=== PATIENT | male | born 1990 | race Caucasian/White ===

== ENCOUNTER 2016-07-08 03:42 | Emergency (ER) | payer MEDICAID ==
[~2016-07-08] VITALS: Ht 172.7 cm; Wt 76.6 kg
[2016-07-08 03:43] VITALS: BP 147/70
== END 2016-07-08 04:18 | disposition left against medical advice (07) ==
LOC: ED 04:07
DX: F10.99 Alcohol use, unspecified with unspecified alcohol-induced disorder (principal); F15.10 Other stimulant abuse, uncomplicated; Y90.9 Presence of alcohol in blood, level not specified; Z53.21 Procedure and treatment not carried out due to patient leaving prior to being seen by health care provider

== ENCOUNTER 2016-09-16 00:35 | Emergency (ER) | payer SELFPAY ==
[~2016-09-16] VITALS: Ht 175.3 cm; Wt 85.7 kg
[2016-09-16 00:36] VITALS: BP 163/95
== END 2016-09-16 01:52 | disposition home or self-care (01) ==
LOC: ED 01:22
DX: F10.129 Alcohol abuse with intoxication, unspecified (principal); Y90.9 Presence of alcohol in blood, level not specified
CPT/HCPCS: 99281

== ENCOUNTER 2016-12-14 06:02 | Emergency (ER) | payer BC, OTHER ==
[~2016-12-14] VITALS: Ht 175.3 cm; Wt 80.0 kg
[2016-12-14 06:04] VITALS: BP 145/78
[2016-12-14] MEDS ORDERED: ONDANSETRON 2MG/ML, 2ML IVPush ONE (07:30)
[2016-12-14] MEDS ORDERED: SODIUM CHLORIDE 0.9% 1,000ML IVBOLUS ONE (07:30)
[2016-12-14] MEDS ORDERED: THIAMINE 100MG TABLET PO ONE (07:30)
== END 2016-12-14 09:17 | disposition home or self-care (01) ==
LOC: ED 06:36
DX: K52.9 Noninfective gastroenteritis and colitis, unspecified (principal)
CPT/HCPCS: 96360; 99284; J7030

== ENCOUNTER 2016-12-25 07:39 | Emergency (ER) | payer OTHER ==
[~2016-12-25] VITALS: Ht 175.3 cm; Wt 77.0 kg
[2016-12-25] MEDS ORDERED: BACITRACIN ZINC OINT 500U/GM, 0.9 GM ONE (07:50)
[2016-12-25 10:09] VITALS: BP 138/68
== END 2016-12-25 11:36 | disposition home or self-care (01) ==
LOC: ED 07:56
DX: F15.129 Other stimulant abuse with intoxication, unspecified (principal)
CPT/HCPCS: 99283

== ENCOUNTER 2016-12-25 20:45 | Emergency (ER) | payer OTHER ==
[~2016-12-25] VITALS: Ht 172.7 cm; Wt 75.0 kg
[2016-12-26 00:14] VITALS: BP 108/70
== END 2016-12-26 01:05 | disposition home or self-care (01) ==
LOC: ED 23:50
DX: S02.2XXA Fracture of nasal bones, initial encounter for closed fracture (principal); G89.11 Acute pain due to trauma; Y04.0XXA Assault by unarmed brawl or fight, initial encounter
CPT/HCPCS: 12011; 70450; 70486; 72125

== ENCOUNTER 2019-06-02 13:52 | Emergency (ER) | payer SELFPAY ==
[~2019-06-02] VITALS: Ht 175.3 cm; Wt 88.6 kg
[2019-06-02] MEDS ORDERED: ACETAMINOPHEN 500 MG TABLET ONE (13:58)
[2019-06-02] MEDS ORDERED: ACETAMINOPHEN 500 MG TABLET PO ONE (14:00)
[2019-06-02] MEDS ORDERED: SODIUM CHLORIDE 0.9% 1,000ML IVBOLUS ONE (14:00)
--- NOTE | 2019-06-02 14:36 | NUR ---
NO ANSWER WHEN CALLED FOR A ROOM AT THIS TIME.
[2019-06-02 14:50] LABS: RAPID INFLUENZA A POSITIVE (Negative); RAPID INFLUENZA B Negative (Negative)
--- NOTE | 2019-06-02 15:10 | NUR ---
ER PA WAS IN TO SEE PT. IV BOLUS INFUSING. PT UNDERSTANDS POC.
[2019-06-02 15:12] LABS: BASOPHILS % (AUTO) 0 % (0-1); EOSINOPHILS % (AUTO) 0 % (1-7); LYMPHOCYTES # (AUTO) 0.37 x10^3/uL (1-3.4); LYMPHOCYTES % (AUTO) 8 % (22-44); MD NO; MEAN CORPUSCULAR HEMOGLOBIN 31.2 pg (27.5-34.5); MEAN CORPUSCULAR HGB CONC 33.9 g/dL (33.2-36.2); MEAN CORPUSCULAR VOLUME 91.9 fL (81-97); MEAN PLATELET VOLUME 7.5 fL (7.4-10.4); MONOCYTES # (AUTO) 0.36 x10^3/uL (0.2-0.8); MONOCYTES % (AUTO) 7 % (2-9); NEUTROPHILS # (AUTO) 4.26 x10^3/uL (1.8-6.8); NEUTROPHILS % (AUTO) 85 % (42-75); PLATELET COUNT 208 x10^3/uL (130-400); RED BLOOD COUNT 4.43 x10^6/uL (4.38-5.82); RED CELL DISTRIBUTION WIDTH 12.6 % (9.4-14.8)
[2019-06-02 15:13] LABS: MICROSCOPIC INDICATED
[2019-06-02 15:15] VITALS: BP 146/75
[2019-06-02] MEDS ORDERED: KETOROLAC 30 MG/1 ML ONE (15:17)
[2019-06-02 15:25] LABS: ALBUMIN 3.8 g/dL (3.4-5.0); ANION GAP 10 mmol/L (5-15); CALCIUM 8.3 mg/dL (8.5-10.1); CHLORIDE 104 mmol/L (98-107)
[2019-06-02 15:26] LABS: CULTURE INDICATED? NO
[2019-06-02 15:29] LABS: ALANINE AMINOTRANSFERASE 69 U/L (12-78); ALKALINE PHOSPHATASE 77 U/L (45-117); BILIRUBIN,TOTAL 0.4 mg/dL (0.2-1.0); CREATININE 1.26 mg/dL (0.7-1.3); TOTAL PROTEIN 6.8 g/dL (6.4-8.2)
[2019-06-02] MEDS ORDERED: KETOROLAC 30 MG/1 ML IVPush ONE (15:30)
== END 2019-06-02 16:27 | disposition home or self-care (01) ==
LOC: ED 16:21
DX: J10.1 Influenza due to other identified influenza virus with other respiratory manifestations (principal); R00.0 Tachycardia, unspecified; Z72.9 Problem related to lifestyle, unspecified
CPT/HCPCS: 36415; 71046; 80053; 81001; 83605; 84145; 85025; 87040; 87081; 87147; 87400; 87880; 93005; 96374; 99285; J1885; J7030

== ENCOUNTER 2019-06-06 09:20 | Emergency (ER) | payer SELFPAY ==
[~2019-06-06] VITALS: Ht 175.3 cm; Wt 86.6 kg
[2019-06-06 09:28] VITALS: BP 130/85
== END 2019-06-06 11:21 | disposition home or self-care (01) ==
LOC: ED 11:07
DX: S61.240A Puncture wound with foreign body of right index finger without damage to nail, initial encounter (principal); R05 Cough; J02.9 Acute pharyngitis, unspecified; F17.200 Nicotine dependence, unspecified, uncomplicated; Z76.0 Encounter for issue of repeat prescription; X58.XXXA Exposure to other specified factors, initial encounter; Y93.89 Activity, other specified; Y92.098 Other place in other non-institutional residence as the place of occurrence of the external cause; Y99.8 Other external cause status
CPT/HCPCS: 99284

== ENCOUNTER 2019-06-11 10:26 | Emergency (ER) | payer MEDICAID ==
[~2019-06-11] VITALS: Ht 172.7 cm; Wt 83.6 kg
--- NOTE | 2019-06-11 10:46 | NUR ---
PT AMBULATED TO [facility]. PT WAS SEEN EARLIER THIS MONTH FOR C/O FLU. STATES "SOMEONE CALLED ME AND TOLD ME I HAD THE FLU, BUT DIDN'T ORDER ME ANY MEDICATIONS. NOW IT HURTS TO BREATH, AND COUGH" LUNGS ALL LOBES HAVE FINE INSP AND EXP WHEEZING. ASSESSED BY HERBERT DOTSON, ORDER FOR BREATHING TREATMENT. PT ASSESSED, GIVEN CALL LIGHT AND BLANKET.
[2019-06-11] MEDS ORDERED: ALBUTEROL/IPRATROPIUM 2.5MG/0.5MG, 3 ML NPPB ONE (11:00)
[2019-06-11] MEDS ORDERED: ALBUTEROL/IPRATROPIUM 2.5MG/0.5MG, 3 ML ONE (11:07)
--- NOTE | 2019-06-11 11:27 | NUR ---
DISCHARGE INSTRUCTIONS GIVEN TO PATIENT. PT VERBALIZES UNDERSTANDING OF ALL INSTSRUCTIONS AND FOLLOW UP. PRESCRIPTION GIVEN FOR RAZIA MAXWELL, PT INFORMED OF USE OF MEDICATIONS AND SIDE EFFECTS. PT HAS NO QUESTIONS REGARDING MEDICATIONS. PT AMBULATED OUT TO DISCHARGE DESK WITH STRONG STEADY GAIT.
[2019-06-11 11:29] VITALS: BP 122/77
== END 2019-06-11 11:31 | disposition home or self-care (01) ==
LOC: ED 11:26
DX: J11.1 Influenza due to unidentified influenza virus with other respiratory manifestations (principal)
CPT/HCPCS: 71046; 94640; 99283; J7620

== ENCOUNTER 2019-06-28 03:46 | Emergency (ER) | payer MEDICAID ==
[~2019-06-28] VITALS: Ht 172.7 cm; Wt 80.6 kg
[2019-06-28 03:48] VITALS: BP 165/95
--- NOTE | 2019-06-28 04:02 | NUR ---
"I HAVE RIGHT SIDED RIB PAIN WITH DEEP BREATHS" X 2.5 WEEKS, ALSO C/O PRODUCTIVE COUGH. WAS HERE 2 WEEKS AGO AND D/X WITH FLU, PRESCRIBED INHALER , TESSALON PEARLS AND NOT GETTING ANY BETTER. per triage note pt walked in followed by staff provided gown pt is in [facility] pt is waiting for erp for er eval
[2019-06-28] MEDS ORDERED: KETOROLAC 60 MG/2 ML ONE (04:13)
[2019-06-28] MEDS ORDERED: KETOROLAC 30 MG/1 ML ONE (04:17)
--- NOTE | 2019-06-28 04:24 | NUR ---
medicated by toradol imaging chest xray was done waiting for ekg now
[2019-06-28] MEDS ORDERED: KETOROLAC 30 MG/1 ML IM ONE (04:30)
--- NOTE | 2019-06-28 06:16 | NUR ---
given dc instruction pt understood pt up ambulated to check out pt stated pt feels better now
== END 2019-06-28 06:18 | disposition home or self-care (01) ==
LOC: ED 05:34
DX: R07.89 Other chest pain (principal); F15.129 Other stimulant abuse with intoxication, unspecified; Z72.9 Problem related to lifestyle, unspecified; F17.200 Nicotine dependence, unspecified, uncomplicated
CPT/HCPCS: 71045; 93005; 96372; 99283; J1885

== ENCOUNTER 2019-06-28 11:21 | Emergency (ER) | payer MEDICAID ==
[~2019-06-28] VITALS: Ht 175.3 cm; Wt 91.0 kg
[2019-06-28] MEDS ORDERED: NALOXONE 0.4 MG/ML, 1ML ONE (11:32)
--- NOTE | 2019-06-28 11:51 | NUR ---
RECEIVED REPORT FROM KATYA VILLALPANDO, ASSUMING CARE AT THIS TIME
--- NOTE | 2019-06-28 11:52 | NUR ---
CT ON HOLD FOR CODE NEURO PATIENT
--- NOTE | 2019-06-28 11:54 | NUR ---
no change in s/s post narcan. aware
[2019-06-28 11:56] LABS: BASOPHILS # (AUTO) 0.03 x10^3/uL (0-0.1); BASOPHILS % (AUTO) 0 % (0-1); EOSINOPHILS % (AUTO) 1 % (1-7); LYMPHOCYTES # (AUTO) 2.48 x10^3/uL (1-3.4); LYMPHOCYTES % (AUTO) 29 % (22-44); MD NO; MEAN PLATELET VOLUME 7.3 fL (7.4-10.4); MONOCYTES # (AUTO) 0.87 x10^3/uL (0.2-0.8); MONOCYTES % (AUTO) 10 % (2-9); NEUTROPHILS # (AUTO) 5.21 x10^3/uL (1.8-6.8); NEUTROPHILS % (AUTO) 60 % (42-75); PLATELET COUNT 325 x10^3/uL (130-400); RED BLOOD COUNT 4.85 x10^6/uL (4.38-5.82); RED CELL DISTRIBUTION WIDTH 13.6 % (9.4-14.8)
[2019-06-28] MEDS ORDERED: NALOXONE 0.4 MG/ML, 1ML IVPush PRN (12:00)
[2019-06-28 12:07] LABS: ALANINE AMINOTRANSFERASE 35 U/L (12-78); ALBUMIN 3.2 g/dL (3.4-5.0); ANION GAP 8 mmol/L (5-15); CALCIUM 8.4 mg/dL (8.5-10.1); CHLORIDE 106 mmol/L (98-107); CREATININE 0.78 mg/dL (0.7-1.3)
[2019-06-28 12:08] LABS: SALICYLATE LEVEL < 1.7 mg/dL (2.8-20.0)
[2019-06-28 12:17] LABS: ALKALINE PHOSPHATASE 89 U/L (45-117); BILIRUBIN,TOTAL 0.4 mg/dL (0.2-1.0); TOTAL PROTEIN 7.5 g/dL (6.4-8.2)
--- NOTE | 2019-06-28 12:19 | NUR ---
PT CONTINUES TO BE UNRESPONSIVE TO VERBAL STIMILI, SOME RETRACTION FROM PAIN. PUPILS PINPOINT WITH RIGHT EYE DEVEATED TO THE SIDE. VSS AT THIS TIME. NADN. AWAITING TEST RESULTS AT THIS TIME
--- NOTE | 2019-06-28 12:42 | NUR ---
Vitaliy aguayo in [facility] - 06/28/19 at 1243 by [facility] ATTEMPTING US LESLIE MD UPDATED ON DELAYS
--- NOTE | 2019-06-28 12:45 | NUR ---
TECH AT BEDSIDE FOR EKG
--- NOTE | 2019-06-28 13:00 | NUR ---
PT TAKEN TO CT
--- NOTE | 2019-06-28 13:08 | NUR ---
BACK FROM CT AT THIS TIME
--- NOTE | 2019-06-28 13:15 | NUR ---
WENT TO ATTEMPT STRAIGHT CATH UA, PT STARTING TO BECOME MORE RESPONSIVE. SAYING "WHAT" AFTER STERNAL RUB. GAURDING GENITAL AREA WHEN ASKING FOR UA. MD TO BE UPDATED
--- NOTE | 2019-06-28 14:06 | NUR ---
STILL AWAITING RECHECK BY AT THIS TIME. PT SLEEPING IN BED, SKYLAR. VSS. WILL CONTINUE TO MONITOR
[2019-06-28 16:08] VITALS: BP 108/58
--- NOTE | 2019-06-28 16:08 | NUR ---
pt awaiting and talking at this time, answering questions. pt sts he took a xanax, and martha then must have fallen asleep. updated. Will attempts to walk pt in halls
--- NOTE | 2019-06-28 16:40 | NUR ---
SUCCESSFUL AMB IN MD [facility] UPDATED. DC PAPERS RECEIVED
== END 2019-06-28 17:06 | disposition home or self-care (01) ==
LOC: ED 16:40
DX: F13.10 Sedative, hypnotic or anxiolytic abuse, uncomplicated (principal); T42.4X1A Poisoning by benzodiazepines, accidental (unintentional), initial encounter; T42.8X1A Poisoning by antiparkinsonism drugs and other central muscle-tone depressants, accidental (unintentional), initial encounter; R94.31 Abnormal electrocardiogram [ECG] [EKG]; R41.82 Altered mental status, unspecified; Y92.89 Other specified places as the place of occurrence of the external cause
CPT/HCPCS: 36415; 70450; 80053; 80307; 82140; 85025; 93005; 96374; 99285; J2310

== ENCOUNTER 2019-07-09 05:31 | Emergency (ER) | payer MEDICAID ==
[~2019-07-09] VITALS: Ht 172.7 cm; Wt 72.0 kg
[2019-07-09 05:33] VITALS: BP 129/82
--- NOTE | 2019-07-09 05:33 | NUR ---
PT ARRIVED W [facility] AFTER BEING REMOVED FROM 10/29 BY [facility]. PT AMBULATORY UPON ARRIVAL, NAD NOTED. A&OX4. SPEECH CLEAR.
--- NOTE | 2019-07-09 05:39 | NUR ---
PT NOTED TO AMBULATE STEADILY OUT OF DEPARTMENT. PT DRESSED APPROPRIATELY FOR WEATHER. PWD; NAD NOTED.
--- NOTE | 2019-07-09 05:41 | NUR ---
Pt noted to be drinking a beer at the nurses station, when informed that this in no t okay, became aggressive and verbally abusive, ambulate out ambulance bay doors with steady gait and appears to be voiding in entry way, security called
== END 2019-07-09 05:42 | disposition home or self-care (01) ==
LOC: ED 05:36
DX: F15.129 Other stimulant abuse with intoxication, unspecified (principal); F10.129 Alcohol abuse with intoxication, unspecified; Y90.0 Blood alcohol level of less than 20 mg/100 ml
CPT/HCPCS: 99283

== ENCOUNTER 2019-08-30 06:28 | Emergency (ER) | payer MEDICAID ==
[~2019-08-30] VITALS: Ht 175.3 cm; Wt 82.1 kg
--- NOTE | 2019-08-30 06:31 | NUR ---
PT CHECKED IN AND THEN IMMEDIATELY WENT TO THE RESTROOM
[2019-08-30 06:37] VITALS: BP 104/79
--- NOTE | 2019-08-30 07:13 | NUR ---
MEDICAL INTERPRETER: PT AMBULATORY WITH STEADY GAIT TO ROOM AT THIS TIME.
--- NOTE | 2019-08-30 08:29 | NUR ---
Patient given discharge instructions and they have confirmed that they understand the instructions. Patient ambulatory with steady gait.
== END 2019-08-30 08:30 | disposition home or self-care (01) ==
LOC: ED 07:47
DX: L02.01 Cutaneous abscess of face (principal); F17.200 Nicotine dependence, unspecified, uncomplicated
CPT/HCPCS: 99283

== ENCOUNTER 2019-10-21 00:44 | Emergency (ER) | payer MEDICAID ==
[~2019-10-21] VITALS: Ht 170.2 cm; Wt 80.2 kg
[2019-10-21 00:48] VITALS: BP 146/96
--- NOTE | 2019-10-21 01:22 | NUR ---
BREAK RN: PT. AMBULATORY TO ROOM FROM LOBBY AT THIS TIME. DR. MORA AT TO EVAL PT. AND DISCUSS POC.
--- NOTE | 2019-10-21 01:27 | NUR ---
PT. REPORTS METH USE 3-4 TIMES A WEEK. WHEN MD ASKED PT. IF HE HAD ANY DESIRE TO STOP METH HE STATES "NO MAN, I LIKE TO JUST TAKE OFF!" PT. STATES "A LITTLE ATIVAN TO HELP ME SLEEP WOULD BE GREAT." POC DISCUSSED. ENCOURAGED PT. TO STOP METH USE.
== END 2019-10-21 01:36 | disposition home or self-care (01) ==
LOC: ED 01:21
DX: F15.122 Other stimulant abuse with intoxication with perceptual disturbance (principal); F41.1 Generalized anxiety disorder; F17.210 Nicotine dependence, cigarettes, uncomplicated
CPT/HCPCS: 99281; 99406

== ENCOUNTER 2019-11-14 05:35 | Emergency (ER) | payer MEDICAID ==
[~2019-11-14] VITALS: Ht 175.3 cm; Wt 80.0 kg
[2019-11-14 05:43] VITALS: BP 164/97
--- NOTE | 2019-11-14 06:01 | NUR ---
PATIENT COMES IN FOR DETOX OF ALCOHOL, HE REPORTS HE DRINKS ABOUT A FIFTH OF VODKA A DAY AND "WINE AND BEER ANYTHING I CAN GET MY HANDS ON". HE ALSO ADMITS TO METH AND MARIJUANA USE LAST NIGHT. HE REPORTS LAST DRINK WAS RIGHT BEFORE ARRIVING TO ER. PATIENT DENIES ANY SEIZURES FROM DETOX, LAST ATTEMPT TO DETOX WAS A MONTH AGO AT [facility], PATIENT REPORTS " DID NOT LAST LONG" BUT WOULD NOT ELOBORATE HOW LONG HE WAS SOBER FOR. PATIENT DENIES ANY MEDICAL COMPLAINTS, HE APPEARS INTOXICATED
--- NOTE | 2019-11-14 06:23 | NUR ---
patient given discharge paperwork and taxi voucher, patient steadily ambulated out of er
== END 2019-11-14 06:25 | disposition home or self-care (01) ==
LOC: ED 06:17
DX: F10.120 Alcohol abuse with intoxication, uncomplicated (principal); Y90.9 Presence of alcohol in blood, level not specified
CPT/HCPCS: 99281

== ENCOUNTER 2019-11-21 17:37 | Emergency (ER) | payer MEDICAID ==
[~2019-11-21] VITALS: Ht 172.7 cm; Wt 73.5 kg
[2019-11-21 17:38] VITALS: BP 137/89
--- NOTE | 2019-11-21 18:44 | NUR ---
not in lobby
--- NOTE | 2019-11-21 18:59 | NUR ---
Pt amb w/ steady gait to room from lobby.
[2019-11-21] MEDS ORDERED: LIDOCAINE-MPF 1%, 5ML ONE (19:56)
[2019-11-21] MEDS ORDERED: LIDOCAINE 1%, 10ML INFIL ONE (20:00)
== END 2019-11-21 20:35 | disposition home or self-care (01) ==
LOC: ED 19:30
DX: S63.206A Unspecified subluxation of right little finger, initial encounter (principal); F15.10 Other stimulant abuse, uncomplicated; Z72.9 Problem related to lifestyle, unspecified; W01.0XXA Fall on same level from slipping, tripping and stumbling without subsequent striking against object, initial encounter; Y93.89 Activity, other specified; Y92.89 Other specified places as the place of occurrence of the external cause; Y99.8 Other external cause status
CPT/HCPCS: 26770; 99284